=== PATIENT | male | born 1980 | race Caucasian/White ===

== ENCOUNTER 2018-12-05 10:48 | Day surgery (SDC) | payer BC ==
[2018-12-01 10:41] VITALS: BMI 24.6
[~2018-12-05 10:48] MED LIST: LACTATED RINGERS 1,000 ML IV SCH; LIDOCAINE 1% 20 ML VIAL (10MG/ML) FOR IV START INTRADERMA PRN
[2018-12-05 11:25] VITALS: RESP 16; TEMP 97.4
[2018-12-05] MEDS ORDERED: PROPOFOL 10 MG/ML 20 ML VIAL IV ONE (12:44)
[2018-12-05] MEDS ORDERED: fentaNYL (PF) 50 MCG/ML 2 ML AMP ONE (12:44)
[2018-12-05] MEDS ORDERED: LIDOCAINE 1% INJ 10MG/ML (20 ML MDV) ONE (12:44)
--- NOTE | 2018-12-05 13:26 | P.PCN ---
Date of Procedure: 12/05/18 Procedure(s) Performed: Procedure: Colonoscopy and polypectomy. Preoperative diagnosis: Screening for neoplasia, patient has family history of colon cancer. Postoperative diagnosis: Right colon and sigmoid polyps snared but no large polyps or cancer. Preparation: HalfLytely prep. Sedation: Was provided by anesthesia. Brief clinical history: The patient is a 38-year-old male who is scheduled for this evaluation for screening for neoplasia because of family history of colon cancer in his mother and maternal grandmother. The patient has no abdominal complaints, bleeding or anemia. This would be his first colonoscopy. Procedure: With the patient on his left lateral decubitus position and after informed consent and adequate sedation, the perianal area was inspected and it did not show any fissures or fistulas. There were no masses felt on digital rectal examination. The Olympus CFH 190L video colonoscope was then inserted in the rectum in the usual fashion and advanced to the cecum. The preparation was less than ideal on the right side and cecum and I spent some time cleansing the bowel. There was a 1.5 cm polyp in the proximal right colon which I snared and retrieved by suction. There was another small polyp in the distal sigmoid which I snared and retrieved by suction but there were no large polyps or cancer. The mucosa appeared healthy. I retroflexed the endoscope in the rectum before the endoscope was withdrawn. The patient tolerated the procedure well. Plan: The patient was reassured. Will await pathology results. I anticipate repeating his colonoscopy in 3-5 years. He will follow up with you as planned.
[2018-12-05 14:06] VITALS: BP 108/70; PULSE 66
== END 2018-12-05 13:05 | disposition home or self-care (01) ==
LOC: ORWHC2ENDO 10:48
DX: Z12.11 Encounter for screening for malignant neoplasm of colon (principal); D12.2 Benign neoplasm of ascending colon; D12.5 Benign neoplasm of sigmoid colon; F17.200 Nicotine dependence, unspecified, uncomplicated; Z80.0 Family history of malignant neoplasm of digestive organs; Z88.6 Allergy status to analgesic agent
CPT/HCPCS: 88305; 45385; J2001; J3010; J2704

== ENCOUNTER → 2019-01-24 | Outpatient (CLI) | payer BC ==
--- NOTE | 2019-01-24 16:01 | CT ---
EXAMINATION TYPE: CT pelvis wo con DATE OF EXAM: 01/24/2019 COMPARISON: None HISTORY: Right inguinal pain. CT DLP: 515 mGycm Automated exposure control for dose reduction was used. FINDINGS: CT the pelvis performed on a spiral scan at 5 mm thick sections. Oral contrast is utilized. Inferior poles of the kidneys appear unremarkable. Small portion of the tip of the gallbladder appear s normal. Tip of the liver appears normal Aorta and inferior vena cava are unremarkable. Iliac vessels appear normal Fecal debris is within the distal colon. Small bowel loops are distended with oral contrast. No suspi cious obstruction is evident. Urinary bladder is normal. The prostate is prominent. Osseous structures appear within normal limits. Subchondral cyst is in the anterior right femoral hea d. Inguinal regions are normal. No inguinal hernias are evident. IMPRESSION: NO SUSPICIOUS ABNORMALITY CT PELVIS.
== END ==
LOC: RADCTMAIN 13:52
PROVIDERS: ATTEND Internal Medicine Geriatric Medicine
DX: R10.30 Lower abdominal pain, unspecified (principal)
CPT/HCPCS: 72192